=== PATIENT | female | born 1960 | race Caucasian/White ===

== ENCOUNTER 2017-05-31 22:34 | Observation (INO) | END 2017-06-02 18:20 | disposition home or self-care (01) ==

== ENCOUNTER 2017-08-10 21:11 | Emergency (ER) | END 2017-08-11 01:41 | disposition home or self-care (01) ==

== ENCOUNTER 2017-08-26 14:52 | Emergency (ER) | END 2017-08-26 16:41 | disposition home or self-care (01) ==

== ENCOUNTER 2017-09-13 03:16 | Emergency (ER) | END 2017-09-13 06:18 | disposition home or self-care (01) ==

== ENCOUNTER 2018-02-23 08:23 | Day surgery (SDC) | END 2018-02-23 15:10 | disposition home or self-care (01) ==

== ENCOUNTER 2018-04-22 21:59 | Emergency (ER) | payer OTHER ==
[~2018-04-22] VITALS: Ht 157.5 cm; Wt 69.7 kg
[~2018-04-22 21:59] MED LIST: ALEN70TA46 PO; ASPI-817 PO; BUPR300T4 PO; GLIP10TA14 PO; GLIP5TAB13 PO; INSU100I33 SC; LORA1TAB PO; PANT40TA3 PO; [UNRECOGNIZED DRUG - OTHER]
[2018-04-22 22:03] VITALS: Ht 157.5 cm; Wt 69.7 kg
[2018-04-23] MEDS ORDERED: ACETAMINOPHEN 500 MG TAB PO STA (02:36)
[2018-04-23] MEDS ORDERED: KETOROLAC 30 MG INJ IM STA (02:36)
[2018-04-23] MEDS ORDERED: IBUP800T48 PO (04:06)
--- NOTE | 2018-04-23 04:20 | ERD ---
ER Documentation Chief Complaint Chief Complaint glf about 30 minutes ago, c/o pain right knee/back HPI 58 year-old [female] coming in today with Chief Complaint: Right extremity pain History of Present Illness: Patient reports mechanical fall, injuring right knee and ankle. Loss of consciousness, denies hitting head. Denies any other associated symptoms. Review of systems: All systems were reviewed and are negative except for what is indicated in the history of present illness. Past Medical History: Diabetes, asthma, hyperlipidemia, hypertension; the surgical history includes , tubal ligation, left wrist surgery Social History: [Patient denies tobacco, alcohol, elicit drug use] Medications: [Reviewed as documented Nursing Notes] Allergies: [NKDA] Social Concerns: Denies ROS All systems reviewed and are negative except as per history of present illness. Medications Home Meds Active Scripts Ibuprofen* (Motrin*) 800 Mg Tab, 800 MG PO Q6 for inflammation/pain, #30 TAB Prov:SACHIN DOHERTY V STATISTICAL PROGRAMMER ANALYST 04/23/18 Pantoprazole* (Protonix*) 40 Mg Tablet.dr, 40 MG PO BID, #42 TAB Prov:DARYL CHAUDHARY V. STATISTICAL PROGRAMMER ANALYST 06/02/17 Glipizide* (Glipizide*) 5 Mg Tablet, 5 MG PO AC DINNER, #30 TAB Prov:DARYL CHAUDHARY V. STATISTICAL PROGRAMMER ANALYST 06/02/17 Glipizide* (Glipizide*) 10 Mg Tablet, 10 MG PO AC BREAKFAST, #30 TAB Prov:DARYL CHAUDHARY V. STATISTICAL PROGRAMMER ANALYST 18 Reported Medications [Resperdone] No Conflict Check, 0.5 HS for SLEEP 02/23/18 Lorazepam* (Lorazepam*) 1 Mg Tablet, 1 MG PO HS PRN for ANXIETY, #30 TAB 02/23/18 Aspirin* (Aspirin* EC) 81 Mg Tablet.dr, 81 MG PO DAILY, TAB 02/23/18 Insulin Glargine,Hum.rec.anlog (Basaglar Kwikpen U-100) 100 Unit/1 Ml Insuln.pen, 100 UNIT SC, EA 02/23/18 Bupropion Hcl* (Bupropion XL*) 300 Mg Tab.sr.24h, 300 MG PO HS, TAB.SA 06/01/17 Alendronate Sodium* (Binosto*) 70 Mg Tablet.eff, 70 MG PO Q7D, TAB 06/01/17 Allergies Allergies: Coded Allergies: No Known Allergy (Unverified , 09/13/17) PMhx/Soc History of Surgery: Yes (C= SECTION X1/ TUBAL LIGATION/ LEFT FOOT/ LEFT WRIST) Anesthesia Reaction: No Hx Neurological Disorder: No Hx Respiratory Disorders: Yes (ASTHMA) Hx Cardiac Disorders: Yes (high cholesterol) Hx Psychiatric Problems: Yes (DEPRESSION) Hx Miscellaneous Medical Probl: Yes (diabetes) Hx Alcohol Use: No Hx Substance Use: No Hx Tobacco Use: No FmHx Family History: diabetes, coronary disease Physical Exam Vitals Vital Signs Date Temp Pulse Resp B/P (MAP) Pulse Ox O2 O2 Flow FiO2 Time Delivery Rate 04/22/18 98.0 98 18 170/83 96 22:03 (112) Physical Exam Const: No acute distress Head: Atraumatic Eyes: Normal Conjunctiva ENT: Normal External Ears, Nose and Mouth. Neck: Full range of motion. No meningismus. Resp: Clear to auscultation bilaterally Cardio: Regular rate and rhythm, no murmurs Abd: Soft, non tender, non distended. Normal bowel sounds Skin: No petechiae or rashes Back: No midline or flank tenderness. No paraspinal tenderness. Ext: No cyanosis, or edema. Tender to palpation to right lateral malleolus. Tender to palpation to right medial knee. No erythema, warmth, swelling, deformity noted. Neur: Awake and alert Psych: Normal Mood and Affect Results 24 hrs Current Medications Medications Dose Sig/Maurilio Start Time Status Last (Trade) Ordered Route PRN Stop Time Admin Dose Reason Admin Ketorolac 30 mg ONCE STAT 04/23/18 DC 04/23/18 Tromethamine IM 02:36 03:03 (Toradol) 04/23/18 02:39 1,000 mg ONCE STAT 04/23/18 DC 04/23/18 Acetaminophen PO 02:36 03:02 (Tylenol 04/23/18 02:39 Tab) Procedures/MDM ED course includes a thorough examination and history. Course includes medication; Toradol for inflammation and acetaminophen for pain Low suspicion for life-threatening medical emergency, fracture, orthopedic em ergency. patient presenting with constellation of symptoms likely representing uncomplicated knee and ankle sprain as characterized by history, physical exam findings [, radiologic]. Negative ankle and knee films for fracture or other pathologic findings. Patient reassessment at 0410: Pain decreased with medication administration. No physical signs of pain, no grimacing noted. Updated on plan of care for HR application in ED education for crutches use at home. Education provided on R.I.C.E. No respiratory distress, otherwise relatively well appearing and nontoxic. Patient educated on diagnoses, prescriptions, follow-up care, return precautions. Strict return precautions given for worsening condition; questions answered discharge. Disposition for discharge with followup in 7 days with PCP/clinic; if patient if pain is still persistent after 7 days patient may need orthopedic referral.. Departure Diagnosis: Primary Impression: Injury of ankle, right Encounter type: initial encounter Qualified Codes: S99.911A - Unspecified injury of right ankle, initial encounter Additional Impression: Knee injury Encounter type: initial encounter Laterality: right Qualified Codes: S89.91XA - Unspecified injury of right lower leg, initial encounter Condition: Stable Patient Instructions: R.I.C.E., Treating Ankle Sprains, Knee Sprain [facility] Usted se jones hecho un examen mdico de control que le indica que no est en lupillo condicin que requiera tratamiento urgente en el Departamento de Emergencia. Un estudio ms profundo y el tratamiento de arriaza condicin pueden esperar sin ningn riesgo hasta que usted sea atendida/o en el consultorio de arriaza mdico o lupillo clnica. Es responsabilidad suya arreglar lupillo carolyn para el seguimiento del uziel. MANEJO DE CONDICIONES NO URGENTES EN EL FUTURO 1) Si usted tiene un mdico de atencin primaria: Usted debera llamar a arriaza mdico de atencin primaria antes de venir al departamento de emergencia. Despus de las horas de consultorio, arriaza doctor o arriaza asociado/a est disponible por telfono. El mdico o enfermero de karly en el servicio telefnico puede asesorarle por maite medio para atender el problema, o uziel contrario se puede programar lupillo carolyn. 2) Si usted no tiene un mdico de atencin primaria: Llame al mdico o clnica de referencia que aparece abajo stanislav las horas de consultorio para hacer lupillo carolyn para que le vean. CLINICAS: [facility] [phone] [facility] [phone] [facility] [phone] [place] [phone] [place] [id number] [phone] [facility] [phone] [address] [facility]. [facility] () Usted se jones hecho un examen mdico de control que le indica que no est en lupillo condicin que requiera tratamiento urgente en el Departamento de Emergencia. Un estudio ms profundo y el tratamiento de arriaza condicin pueden esperar sin ningn riesgo hasta que usted sea atendida/o en el consultorio de arriaza mdico o lupillo clnica. Es responsabilidad suya arreglar lupillo carolyn para el seguimiento del uziel. MANEJO DE CONDICIONES NO URGENTES EN EL FUTURO 1) Si usted tiene un mdico de atencin primaria: Usted debera llamar a arriaza mdico de atencin primaria antes de venir al departamento de emergencia. Despus de las horas de consultorio, arriaza doctor o arriaza asociado/a est disponible por telfono. El mdico o enfermero de karly en el servicio telefnico puede asesorarle por matie medio para atender el problema, o uziel contrario se puede programar lupillo carolyn. 2) Si usted no tiene un mdico de atencin primaria: Llame al mdico o condado institucions de referencia que aparece abajo stanislav las horas de consultorio para hacer lupillo carolyn para que le vean. SI USTED NO PUEDE PAGAR PARA ANILA UN MEDICO puede ir a: [facility] [phone] [place] [address] [facility] [address] [place] [address] [facility] [address] [place] [address] [facility] [address] [place] [address] Additional Instructions: Call your primary care doctor TOMORROW for an appointment during the next 1 WEEK.Tell the accredited legal secretary that you were referred from this facility.See the doctor sooner or return here if your condition worsens before your appointment time. If pain continues after 1 week, follow-up with primary care doctor; may need referral to senior project controls specialist. Use rest, ice, compression, elevation to help with pain. SACHIN DOHERTY NP Apr 23, 2018 04:20
[2018-04-23 04:29] VITALS: BP 145/82; PULSE 82; RESP 18
== END 2018-04-23 04:10 | disposition home or self-care (01) ==
LOC: FTE 21:59
DX: S99.911A Unspecified injury of right ankle, initial encounter (principal); J45.909 Unspecified asthma, uncomplicated; E11.9 Type 2 diabetes mellitus without complications; I10 Essential (primary) hypertension; W18.30XA Fall on same level, unspecified, initial encounter; Y92.9 Unspecified place or not applicable; Z79.82 Long term (current) use of aspirin; Z79.4 Long term (current) use of insulin
CPT/HCPCS: 73562; 96372; J1885

== ENCOUNTER 2018-06-28 12:44 | Emergency (ER) | payer SELFPAY ==
[~2018-06-28] VITALS: Ht 149.9 cm; Wt 68.1 kg
[~2018-06-28 12:44] MED LIST changes: +IBUP800T48 PO
[2018-06-28 12:50] VITALS: BP 143/80; PULSE 88; RESP 20; Ht 149.9 cm; Wt 68.1 kg
== END 2018-06-28 15:36 | disposition left against medical advice (07) ==
LOC: E/R 12:44
DX: Z53.21 Procedure and treatment not carried out due to patient leaving prior to being seen by health care provider (principal)